=== PATIENT | male | born 2005 | race Hispanic/Latino ===

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

== ENCOUNTER 2024-12-13 19:14 | Emergency (ER) | payer BC, SELFPAY ==
[2024-12-13 19:14] VITALS: BP 127/70; PULSE 62; RESP 14; TEMP 37; O2SAT 98; BMI 31.5
--- NOTE | 2024-12-13 19:23 | RAD_ITS ---
PROCEDURE: WRIST MIN 3 VIEWS REASON FOR EXAM: Fall TECHNIQUE: Three views of the right wrist COMPARISON: None. FINDINGS: No visible fracture. No suspicious bone lesion. Normal alignment. Soft tissues are unremarkable. RAD/Wrist min 3 Views IMPRESSION: No acute abnormality. [facility]
--- NOTE | 2024-12-13 19:25 | RAD_ITS ---
PROCEDURE: HAND MIN 3 VIEWS REASON FOR EXAM: Fall TECHNIQUE: 3 view(s) of the right hand COMPARISON: None. FINDINGS: No visible fracture. No suspicious bone lesion. Normal alignment. Soft tissues are unremarkable. RAD/Hand Min 3 Views IMPRESSION: 1. No acute abnormality. Reading [facility]
--- NOTE | 2024-12-13 19:25 | EX.ED.UPPERE ---
HPI <Dr. Ashkan West MD - Last Filed: 12/13/24 20:25> History of Present Illness Chief Complaint: Upper Extremity Injury <EFRAÍN Sin - Last Filed: 12/13/24 20:19> Narrative Narrative: Patient is a 19-year-old male with no sniffing medical history, presenting to the [facility] apartment after mechanical fall injuring his right wrist. Happened approximately 3 hours prior to arrival. Patient states he has worsening pain to the right hand, right wrist. Here for evaluation [facility] <Dr. Ashkan West MD - Last Filed: 12/13/24 20:25> [facility] Medical History no medical history Home Medications ?Medication ?Instructions ?Recorded ?Last Taken ?Type naproxen 500 mg tablet (Naprosyn) 500 mg PO BID PRN pain #30 tabs 11/23/21 Unknown Rx Allergy/AdvReac Type Severity Reaction Status Date / Time shellfish derived Allergy Severe Anaphylaxis Verified 12/13/24 19:15 Surgical History no surgical history Social History Smoking Status: Never smoker ROS <EFRAÍN Sin - Last Filed: 12/13/24 20:19> ROS ED ROS Narrative Constitutional: Negative for fever, chills, weight loss, weakness Eyes: Negative for vision loss, vision change, double vision ENT: Negative for any sore throat, ear pain, congestion Cardiovascular: Negative for any chest pain, tightness, palpitations Respiratory: Negative for any cough, sputum production, hemoptysis, dyspnea, dyspnea on exertion, orthopnea Gastrointestinal: Negative for any abdominal pain, nausea, vomiting, diarrhea, constipation, blood in stool, blood in vomit : Negative for any urinary frequency, dysuria, retention, blood in urine Muscle skeletal: Negative for any neck pain, back pain. Positive right wrist pain, right hand pain Neurological: Negative for any headache, syncope, dizziness Skin: Negative for any rashes, itching, abrasions, lacerations Psychiatric: Negative for any depression, anxiety, stress, suicidal ideation, homicidal ideation Hematologic: Negative for any excessive bruising, easy bleeding EXAM <Dr. Ashkan West MD - Last Filed: 12/13/24 20:25> Physical Exam Const Vital Signs: 12/13/24 19:14 Temperature 98.6 F Temperature Source Temporal Pulse Rate 62 Respiratory Rate 14 Blood Pressure 127/70 H Blood Pressure Mean 89 Pulse Ox 98 Oxygen Delivery Method Room Air <EFRAÍN Sin - Last Filed: 12/13/24 20:19> Physical Exam Narrative Exam Narrative: Vital signs reviewed. Extremities: Patient does have some soft tissue swelling to the dorsal aspect the wrist, most the pain is on the distal radial aspect. Worsening pain with any flexion or extension. +2 radial pulse. Neuro: Cranial nerves II through XII intact, no focal neurological deficits. Skin: Clean dry and intact with no rash, purpura, petechiae, vesicles or pustules. Backs/flank: No CVA tenderness, no midline spinal tenderness, no deformity. Psych: Normal mood and affect. No SI, HI or acute psychosis. Const Positive well nourished and well developed General Appearance ED: well developed MDM <Dr. Ashkan West MD - Last Filed: 12/13/24 20:25> MDM MDM Narrative Medical decision making narrative: I have personally performed a face to face assessment of the patient and have reviewed the JAZ Note. I performed a substantive portion of the visit including all aspects of the following. My heath findings include: History is remarkable for fall onto outstretched hand. He complains of right wrist pain. He is right-hand dominant. [place] paresthesia, anesthesia motors. He is reluctant to use the left upper extremity due to pain. Exam is remarkable for swelling. There is pain ovation over the distal radius and ulna. There is no pain the patient with axial loading of the thumb or anatomical snuffbox. Median, radial, ulnar nerve function intact. There is no pain ovation of the lateral medial epicondyle, olecranon process or radial head. Medical Decision Making will obtain x-ray to assess for fracture versus soft tissue injury. Patient was medicated. Other additions or changes: [None] Radiography Chest X-Ray - ED: Read by ED Physician (Three-view x-ray of the right wrist and hand was independent reviewed interpreted by me as negative. There is no fracture, asymmetry of the joint line of the carpal bones and no evidence of subluxation. There is no volar fat pad noted.) <EFRAÍN Sin - Last Filed: 12/13/24 20:19> MDM Treatment and Re-Evaluation Narrative: Differential diagnosis includes however is not limited to: Wrist fracture, wrist sprain, hand contusion, deformity Patient appears generally well, vital signs are stable, patient is nontoxic-appearing. Presenting to the emerged department for complaints of right wrist pain, right wrist swelling and hand pain after a fall. X-rays ordered on the right hand, right wrist, these were interpreted by the ER physician. These were negative for any acute fracture. Patient was offered a wrist splint however refused at this time. He will continue take ibuprofen and Tylenol. All questions were answered, patient stable for discharge. Discharge Plan Triage Chief Complaint: Upper Extremity Injury ED Midlevel Provider: Ascencion Man ED Provider: Ashkan West Dx/Rx/DC Orders Clinical Impression: Fall, Right wrist sprain, Contusion of right hand, initial encounter Instructions: First Aid: Sprains and Fractures, ED Muscle Strain, Extremity Prescriptions: No Action naproxen [Naprosyn] 500 mg tablet 500 mg PO BID PRN (Reason: pain) Qty: 30 0RF Primary Care Provider: Care Physician,No Primary Referrals: Care Physician,No Primary [Primary Care Provider] - Activity Restrictions/Additional Instructions: Please ensure that you ice and elevate. Continue take ibuprofen and Tylenol Print Language: American Disposition Disposition: Home, Self Care Discharge Date/Time: 12/13/24 20:24
[2024-12-13] MEDS: oxyCODONE 5 MG Tablet PO (19:33)
== END 2024-12-13 20:24 | disposition home or self-care (01) ==
PROVIDERS: Emergency Provider Emergency Medicine; Visit Provider Emergency Medicine
DX: S60.221A Contusion of right hand, initial encounter (principal); S63.91XA Sprain of unspecified part of right wrist and hand, initial encounter; W19.XXXA Unspecified fall, initial encounter
CPT/HCPCS: 73110; 73130; 99282

== ENCOUNTER 2024-12-17 16:09 | Emergency (ER) | payer BC, SELFPAY ==
[2024-12-17 16:10] VITALS: BP 122/61; PULSE 93; RESP 16; TEMP 36.4; O2SAT 99; BMI 30.9
[2024-12-17 16:44] LABS: Bacteria 0 SEEN /hpf (None Seen); Mucous, Urine 0 SEEN /hpf (<or=2+); Squamous Epithelial Cells - UA 0 SEEN /hpf (0-5); White Blood Cells 0 SEEN /hpf (0-5)
[2024-12-17 16:47] LABS: Color, Urine Straw (Yellow); Glucose, Dipstick Normal (Normal); Ketone-Dipstick Negative (Negative); Leukocyte Esterase-Dipstick Negative /ul (Negative); Nitrite-Dipstick Negative (Negative); Occult Blood-Urine 10 /ul (Negative); Protein-Dipstick 15 mg/dl (Negative); Urine Bilirubin Dipstick Negative (Negative); Urine Clarity Clear (Clear); Urine Urobilinogen Normal (Normal)
[2024-12-17 17:04] LABS: Red Blood Cells-Urine 0 SEEN /hpf (0-5)
[2024-12-17 18:09] VITALS: BP 119/81; PULSE 77; RESP 18; O2SAT 98
--- NOTE | 2024-12-17 18:37 | CT_ITS ---
PROCEDURE: ABDOMEN/PELVIS W IV CONT ONLY REASON FOR EXAM: Fall with hematuria TECHNIQUE: Abdomen and pelvis CT with intravenous contrast. COMPARISON: None. FINDINGS: Lung bases: Clear Liver: Diffuse fatty infiltration. Gallbladder: Unremarkable. Spleen: Normal size. Pancreas: Normal size without evidence of mass surrounding inflammation or ductal dilation. Adrenals: Unremarkable. Kidneys: Normal renal sizes. No hydronephrosis. Bladder: Unremarkable. Reproductive Organs: Unremarkable. Bowel: Colonic diverticulosis without diverticulitis. Appendix: Normal. Lymph nodes: No suspicious lymph node enlargement. Vasculature: Major vascular structures are unremarkable. Peritoneum / Retroperitoneum: No ascites. No free air. Bones: Unremarkable. CT/Abdomen/Pelvis W IV Cont ONLY IMPRESSION: 1. No acute abnormality in the abdomen and pelvis. 2. Hepatic steatosis 3. Other findings as above One or more dose reduction techniques were used (e.g., Automated exposure contr ol, adjustment of the mA and/or kV according to patient size, use of iterative reconstruction technique). Reading Location: [facility]
--- NOTE | 2024-12-17 18:38 | EDS_ITS ---
HPI History of Present Illness Chief Complaint: Complaint Informant: patient Onset/Context/Timing Onset: Days Context: Gradual Onset Timing: Intermittent Current Severity: Mild Maximum Severity: Mild Narrative Narrative: 19-year-old male history of ADHD. Jasiel recently lysed on Saturday was seen here diagnosed with a sprained wrist. Since the fall on Saturday he thinks he sees small amount of blood in his urine. Some he fell he fell forward and caught himself on his right wrist. He never hit his back. He has no history of dysuria or hematuria is on no blood thinners. Denies any history of kidney stones. He is not having any flank, back or abdominal pain. No trouble urinating. No fever or chills. Denies any other complaints. Prior similar symptoms: No Recent Illness/Hospitalization: No PFSH PFSH Home Medications ?Medication ?Instructions ?Recorded ?Last Taken ?Type dextroamphetamine-amphetamine 15 1 tab PO BID 12/17/24 Unknown History mg tablet Allergy/AdvReac Type Severity Reaction Status Date / Time shellfish derived Allergy Severe Anaphylaxis Verified 12/17/24 16:13 Social History Smoking Status: Never smoker ROS ROS ED ROS Narrative Pressure denies any recent illness. Constitutional Constitutional ED: Denies chills or fever(s) Eyes Eyes: Denies blurry vision ENT ENT ED: Denies ear pain Cardiovascular Cardiovascular: Denies chest pain Respiratory/Chest Respiratory/Chest: Denies cough Gastrointestinal Gastrointestinal: Denies abdominal pain Genitourinary Genitourinary ED: Reports hematuria; Denies dysuria or urinary frequency Musculoskeletal Musculoskeletal: Denies arthralgias or back pain Integumentary Denies abscess Neurologic Neurologic: Denies headache(s) Psychiatric Psychiatric: Denies anxiety Endocrine Endocrinology: Denies cold intolerance Hematologic/Lymphatic Hematologic/Lymphatic: Reports none Allergic/Immunologic Allergic/Immunologic ED: Denies mouth swelling, tongue swelling or urticaria EXAM Physical Exam Narrative Exam Narrative: Fracture. Well-appearing 19-year-old male. Vital signs stable afebrile. No acute distress. No one else present in the room. H EENT exam pupils round react light. No signs of trauma to his face or scalp. Neck nontender. Back and spine nontender. No CVA tenderness. No bruising. Lungs clear. Heart regular rhythm rate about 80 no murmur. Chest wall ribs nontender. Abdomen soft nontender. No peritoneal signs. No bruising. Pelvic girdle intact. Moving all 4 extremities. Nontender no deformity. Normal customs consultant strength. No rmal range of motion. Neurologically awake and alert no focal motor deficits. GCS 15. Benign exam. Const Vital Signs: 12/17/24 16:10 12/17/24 18:09 Temperature 97.6 F L Temperature Source Oral Pulse Rate 93 77 Respiratory Rate 16 18 Blood Pressure 122/61 H 119/81 H Blood Pressure Mean 81 93 Pulse Ox 99 98 Oxygen Delivery Method Room Air Positive well nourished and well developed; Negative for cachectic, contractures or unkempt General Appearance ED: well developed and NAD; Negative for unkempt, cachectic, contractures, cyanotic, diaphoretic or pallor Nutritional Appearance: Negative for cachectic HEENT Reports moist mucous membranes Negative for trauma or tenderness Eyes PERRL and EOMs intact bilaterally General Eye ED: Negative for pale conjunctiva, scleral icterus or other Neck no lymphadenopathy, supple and no JVD General: Negative for tenderness Chest Wall inspection of chest normal and palpation of chest normal Resp normal respiratory effort and clear to auscultation bilaterally Cardio regular rate, regular rhythm, S1 normal heart sound, S2 normal heart sound and no murmurs GI normal to inspection, nondistended, normoactive bowel sounds, non-tender, non- distended and no masses Palpation: soft; Negative for tender, guarding, mass or rebound tenderness present Back/Spine no CVA tenderness General Back: Negative for CVA tenderness Cervical Spine: Negative for cervical spine tenderness Thoracic Spine / Upper Back: Negative for thoracic spinal tenderness or paraspinal muscle tenderness Lumbar Spine / Lower Back: Negative for lumbar spinal tenderness Extremity Negative for normal to inspection Extremity Narrative: Right wrist in a splint. No deformity. Normal customs consultant strength. Normal dorsi plantarflexion. General Extremety ED: Negative for edema or tenderness General Extremity: Negative for edema Neuro oriented x3 and CN's II-XII intact bilaterally Sensorium / Orientation: alert; Negative for orientation impaired, lethargic or stuporous Motor Exam: strength 5/5 throughout Psych mental status grossly normal Appearance: Negative for unkempt Attitude: No agitated Mood & Affect: Negative for depressed, anxious or tearful Skin no rashes or lesions noted, no wounds and skin turgor normal General Skin Exam: elasticity normal; Negative for jaundice or pallor Lesions: No lesion noted Rashes: No rashes noted Trauma: Negative for abrasion Wounds: Negative for wounds noted MDM MDM MDM Narrative Medical decision making narrative: 19-year-old male reporting a recent fall but fell forward. Seen on Saturday. Diagnosed with right wrist sprain. Urgent care sent in the ER today after history of possible hematuria.. Complaining hematuria. Michele benign. CT with contrast to be obtained to evaluate his kidneys. UA shows blood but no other signs of infection. CBC and chemistry be obtained to check his kidney function and his blood counts. Otherwise exam is completely benign. He has no reproducible back pain. Repeat exam patient doing well at 8:26 PM. We went over his lab results and his CT he will be discharged home. Follow-up as needed. Return if worse. History & Record Review Discussion w/independent historian: Patient Lab Data Attestation: I reviewed the patient's lab results. Lab results narrative: UA shows 10 occult blood. No nitrites. No red or white cells on the micro. No bacteria CBC white count 12.3. H&H is 16 and 47. Platelets 227. Electrolytes 6. Normal BUN and creatinine. Glucose 98. CAT scan no acute abnormality. Read by the radiologist. Reviewed by me. Labs: Laboratory Results - last 24 hr 12/17/24 12/17/24 16:20 18:41 WBC 12.3 H RBC 5.48 Hgb 16.3 Hct 47.5 MCV 86.7 MCH 29.7 MCHC 34.3 RDW Std Deviation 39.8 RDW Coeff of Lyndsey 12.6 Plt Count 227 MPV 11.5 Immature Gran % (Auto) 1.100 H Neut % (Auto) 57.8 Lymph % (Auto) 32.5 [place] % (Auto) 7.1 Eos % (Auto) 0.9 Baso % (Auto) 0.6 Absolute Neuts (auto) 7.1 Absolute Lymphs (auto) 4.01 Nucleated RBC % 0 Sodium 139 Potassium 3.8 Chloride 105 Carbon Dioxide 28.0 Anion Gap 6 BUN 13 Creatinine 0.94 Estim Creat Clear Calc 115.86 Est GFR (MDRD) Af Amer 129 Est GFR (MDRD) Non-Af 107 BUN/Creatinine Ratio 13.8 Glucose 98 Calcium 9.1 Urine Color Straw Urine Clarity Clear Urine pH 7.0 Ur Specific [place] 1.010 Urine Protein 15 H Urine Glucose (UA) Normal Urine Ketones Negative Urine Occult Blood 10 H Urine Nitrite Negative Urine Bilirubin Negative Urine Urobilinogen Normal Ur Leukocyte Esterase Negative Urine RBC 0 SEEN Urine WBC 0 SEEN Ur Squamous Epith Cells 0 SEEN Urine Bacteria 0 SEEN Urine Mucus 0 SEEN Radiography Diagnostic Testing: Clinical Impression(s) from Imaging Studies Abdomen/Pelvis CT 12/17/24 18:37 IMPRESSION: 1. No acute abnormality in the abdomen and pelvis. 2. Hepatic steatosis 3. Other findings as above One or more dose reduction techniques were used (e.g., Automated exposure control, adjustment of the mA and/or kV according to patient size, use of iterative reconstruction technique). Reading Location: [facility] Discharge Plan Triage Chief Complaint: Complaint ED Provider: Joe Grubbs Dx/Rx/DC Orders Clinical Impression: Fall, Right wrist sprain, Hematuria Instructions: Hematuria: Possible Causes Prescriptions: No Action dextroamphetamine-amphetamine 15 mg tablet 1 tab PO BID Primary Care Provider: Care Physician,Clemencia Primary Referrals: Jose Roberto Dick MD [Med Staff - Active Staff] - 1 Week if not improving (Follow-up if you have to continue regarding your urine. Your CAT scan the labs today were good.) Care Physician,No Primary [Primary Care Provider] - Activity Restrictions/Additional Instructions: CAT scan the labs look good. No signs of trauma. Plenty of fluids. If you have continued blood in your urine follow-up with the urologist. Print Language: Dutch Disposition Disposition: Home, Self Care
[2024-12-17 19:08] LABS: Absolute Lymphocyte Count 4.01 X10^3/uL (0.83-4.51); Absolute Neutrophil Count 7.1 X10^3/uL (2.0-7.7); Basophil# 0.07 X10^3/uL; Basophil% 0.6 % (0-1); Eosinophil# 0.11 X10^3/uL; Eosinophils% 0.9 % (0-5); Hematocrit 47.5 % (40-54); Hemoglobin 16.3 g/dL (13.0-16.5); Lymphocyte # 4.01 X10^3/ul (0.83-4.51); Lymphocyte % 32.5 % (19-41); Mean Corp Hgb Conc 34.3 g/dL (32-36); Mean Corpuscular Hgb 29.7 pg (27.0-32.0); Mean Corpuscular Volume 86.7 fL (80-94); Mean Platelet Vol. 11.5 fl (6.2-12.0); Monocyte# 0.88 X10^3/uL; Monocyte% 7.1 % (0-10); NRBC Flagged by Analyzer 0 % (0-5); Neutrophil # 7.12 X10^3/uL (2.7-7.7); Neutrophil % 57.8 % (47-70); Platelet Count 227 K/mm3 (150-450); RBC Distribution Width CV 12.6 % (11.6-14.6); RBC Distribution Width SD 39.8 fl (35.1-43.9); Red Blood Count 5.48 M/mm3 (4.6-6.2); White Blood Count 12.3 K/mm3 (4.4-11.0)
[2024-12-17 19:09] LABS: Anion Gap 6 (5-15); BUN 13 mg/dL (7-18); BUN/Creat Ratio 13.8 RATIO (10-20); Calcium,Total 9.1 mg/dL (8.5-10.1); Chloride 105 mmol/L (98-107); Creatinine, Serum 0.94 mg/dL (0.70-1.30); EST Glomerular Filtration Rate 107 mL/min (>60); Est Glom Filt Rate - Afr Amer 129 mL/min (>60); Estimated Creatinine Clearance 115.86 ml/min; Glucose 98 mg/dL (74-106); Potassium 3.8 mmol/L (3.5-5.1); Sodium Level 139 mmol/L (136-145)
[2024-12-17 20:00] VITALS: PULSE 79; RESP 18; O2SAT 99
== END 2024-12-17 20:33 | disposition home or self-care (01) ==
PROVIDERS: Emergency Provider Emergency Medicine; Referring Provider Emergency Medicine; Visit Provider Emergency Medicine
DX: R31.9 Hematuria, unspecified (principal); S63.501D Unspecified sprain of right wrist, subsequent encounter; W19.XXXA Unspecified fall, initial encounter
CPT/HCPCS: 74177; 80048; 81001; 85025; 99283; Q9967; A4216